=== PATIENT | male | born 1955 | race Caucasian/White ===

== ENCOUNTER → 2017-05-14 | Outpatient (CLI) | payer MEDICARE ==
[~2017-05-14] MED LIST: ACETAMINOPHEN PO; ACETAMINOPHEN500 M4 PO; ACETAMINOPHEN650 M3 PO; ADRENOID CAPSU1 EACH PO; ALBUTEROL17 G1 IH; ALBUTEROL17 GM INH; ALBUTEROL2.5 MG/0.5 INH; AMIODARONE H50 MG/M1 PO; AMIODARONE HCL PO; AMIODARONE HCL100 MG PO; AMIODARONE PO; ANUSOL SUPP1 SUPP; ANUSOL SUPP1 SUPP PR; APAP; ASPIRIN81 M1 PO; ASPIRIN81 M2 PO; B-121000 MC1 PO; BACTRIM DS TABL1 TA1 PO; BACTROBAN22 GM TP; BETAPACE80 MG PO; CARDIZEM60 MG PO; CLARITIN10 M2 PO; COMBIVENT MININEB INH; CORDARONE200 M1 PO; COUMADIN2.5 MG PO; COUMADIN5 MG PO; COUMADIN7.5 MG PO; DALIRESP500 MCG PO; DOXYCYCLINE HY100 M1 PO; DOXYCYCLINE150 MG PO; DUONEB; FLEXERIL PO; GUAIFENESIN DM118 ML PO; HYCODAN SYRUP PO; HYDROCODON-ACE1 EAC9 PO; IBUPROFEN100 MG PO; KEFLEX PO; KEFLEX500 M1 PO; KETOPROFEN PO; LANOXIN PO; LEVAQUIN750 MG PO; LISINOPRIL5 MG PO; LOVASTATIN20 M1 PO; LOVASTATIN20 MG PO; MEDROL PO; MEDROL4 MG/DOSE- PO; METOPROLOL TAR25 MG PO; MOTRIN600 MG PO; MUCINEX PO; MUCINEX1200 MG/BO PO; MUPIROCIN; NO MEDICATIONS; PANTOPRAZOLE SO40 MG PO; PAROXETINE HCL40 MG PO; PERCOCET 5-3251 TAB PO; PHENERGAN PO; PRAVASTATIN SOD40 MG PO; PREDNISONE PO; PROAIR RESPICL90 MCG; PROAIR RESPICL90 MCG INH; PROTONIX PO; ROBAXIN PO; ROBITUSSIN COU118 ML PO; ROBITUSSIN DM118 ML PO; SOTALOL AF80 M1 PO; SOTALOL120 MG PO; SOTALOL160 MG PO; SPIRIVA18 MCG INH; SYMBICORT; SYMBICORT 160/4.6 GM IH; SYMBICORT 160/4.6 GM INH; SYMBICORT INH; TESSALON PERLE100 M1 PO; TESSALON200 MG PO; TOPROL XL 50 MG50 M1 PO; TORADOL10 MG PO; TUSSIONEX PENN480 ML PO; TYLENOL WITH C1 EACH; TYLENOL WITH C1 EACH PO; TYLENOL325 M1 PO; TYLENOL325 MG/10. PO; VANTIN200 MG PO; VIBRAMYCIN100 M1 PO; VICODIN 5/1 TAB 5/50 PO; VITAMIN B-12250 MCG PO; VOLTAREN75 MG PO; WARFARIN SODIUM3 MG PO; XARELTO10 MG PO; ZESTRIL5 MG PO; ZITHROMAX1 G/PKT PO; ZYVOX600 MG PO; [UNRECOGNIZED DRUG - REMARK]
--- NOTE | ~2017-05-14 | CR63 ---
[facility] A Service of [facility] & [facility] RADIOLOGY TEXT RESULTS PATIENT: VIV PERES LOCATION: [facility] : 59 UNIT #: [id number] AGE: [address]: DEEPA SAMANIEGO APRN SEX: M ORDER DR: [id number] [facility] [address] [place], [place] [address] [id number] O MR#: [id number] Acc #: [id number] NAME: VIV PERES. : 1955 SEX: M STUDY DATE/TIME: 05/14/2017 16:57 UNIT: [facility] ROOM: STUDY DESCRIPTION: CR Chest 2 View Attending Physician: Deepa Samaniego Aprn Ordering Physician: Ed Doc Vane Conley Primary Care Physician: Jillian Badillo M.D. MEDICAL IMAGING REPORT This report is preliminary unless electronic signature is present EXAM PA and lateral chest HISTORY Cough 3 days. Left side pain. Congestion. FINDINGS 2 views of the chest demonstrate mild bibasilar linear atelectasis or scarring, slightly greater on the left. No airspace infiltrates. No pleural effusions. Mild hyperinflation of both lungs. Cardiac and mediastinal contours are within normal limits. Left subclavian pacer leads extend into the right atrium and right ventricle. IMPRESSION No acute findings and no active disease. Dictated by... John Celaya M.D. THIS IS AN ELECTRONICALLY VERIFIED REPORT John Celaya M.D. at 05/15/2017 10:40 PM ASHLEY/mary TD: 05/15/2017 21:23 JOB #: [id number] MEDICAL IMAGING REPORT Page 1 of 1 COPY
== END | disposition home or self-care (01) ==
LOC: CRAD 16:28
DX: J40 Bronchitis, not specified as acute or chronic (principal)
CPT/HCPCS: 71020